=== PATIENT | male | born 1940 | race African-American/Black ===

== ENCOUNTER 2016-11-27 13:01 | Observation (INO) | payer MEDICARE ==
--- NOTE | ~2016-11-27 | EKG ---
PATIENT: MORALES ARNOLD UNIT #: [id number] Ventricular Rate: 72 BPM Atrial Rate: 72 BPM P-R Interval: 198 ms QRS Duration: 150 ms Q-T Interval: 390 ms QTC Calculation(Bezet): 427 ms P Commodore: 57 degrees Calculated R Commodore: -71 degrees Calculated T Commodore: 28 degrees Diagnosis Line: Normal sinus rhythm Diagnosis Line: Left axis deviation Diagnosis Line: Right bundle branch block with repolarization Diagnosis Line: abnormality Diagnosis Line: Septal infarct , age undetermined Diagnosis Line: Abnormal ECG Diagnosis Line: When compared with ECG of 24-JAN-2015 16:42, Diagnosis Line: Vent. rate has decreased BY 37 BPM Diagnosis Line: Right bundle branch block is now Present Diagnosis Line: Septal infarct is now Present Diagnosis Line: Confirmed by SHAYLA EVERETT MD ([id number]) on 11/27/2016 Diagnosis Line: 5:46:45 PM INTERPRETING MD: KARLOS BRIDGES
--- NOTE | ~2016-11-27 | DS ---
Unit #: [id number] #: [id number] Patient: MORALES RAMÍREZ [id number] [address] [address] [id number] I MR#: [id number] NAME: MORALES RAMÍREZ ROOM: 57 Age: 76 Sex: M Admission Date: 11/27/2016 : 1940 Discharge Date: 11/28/2016 Attending Physician: Lam Son M.D. Primary Care Physician: Colten Ferreira M.D. DISCHARGE SUMMARY ADMITTING DIAGNOSES 1. Automatic implantable cardioverter-defibrillator beeping. 2. Chest pain. 3. History of anterior ST elevation myocardial infarction in 03/2015. 4. Coronary artery disease with percutaneous coronary intervention to the left anterior descending on 03/24/2015 with bare-metal stent. 5. Ischemic cardiomyopathy with an ejection fraction of 25%. 6. Hypertension. 7. Dyslipidemia. 8. Diabetes mellitus. DISCHARGE DIAGNOSES 1. Automatic implantable cardioverter-defibrillator beeping. 2. Chest pain, resolved. 3. History of anterior ST elevation myocardial infarction in 03/2015. 4. Coronary artery disease with percutaneous coronary intervention to the left anterior descending on 03/24/2015 with bare-metal stent. 5. Ischemic cardiomyopathy with an ejection fraction of 25%. 6. Hypertension. 7. Dyslipidemia. 8. Diabetes mellitus. 9. Left breast tenderness. PROCEDURES PERFORMED 1. On 11/27/2016, the patient had an automatic implantable cardioverter-defibrillator interrogation, which showed normal function. 2. On 11/28/2016, the patient had a immoture.beiscan Cardiolite. The dictated report is pending, however, verbal report from Dr. Son is that the ejection fraction was 40% likely old infarct and no ischemia. Echocardiogram report is pending at this time. HOSPITAL COURSE The patient is a 76-year-old male with history of ST-elevation LA, CAD, and ischemic cardiomyopathy, who presented to the emergency department with complaints of his AICD beeping. He had also reported some recent chest pain, which was alleviated with one nitroglycerin. The patient denies other associated symptoms such as shortness of air, nausea, vomiting, or diaphoresis. Serial troponins were negative. AICD interrogation showed normal function. The patient had no ischemia on his Cardiolite test. The patient did report that he has some tenderness in the left lower breast area. He notes that he had trauma from what he had a cardiac arrest 2 years ago, I wonder if it could be secondary to this. Dr. Son has recommended an outpatient mammogram. Unit #: [id number] #: [id number] Patient: MORALES RAMÍREZ DISCHARGE MEDICATIONS ProAir RespiClick 90 mcg inhalation q.i.d., Symbicort 160/4.5 one puff b.i.d., Flomax 0.4 mg daily, Spiriva 1 inhalation daily, Coreg 3.125 mg b.i.d., Norvasc 5 mg daily, Pravachol 80 mg daily, aspirin 81 mg daily, Percocet 5/325 q.6 hours p.r.n. pain, Effient 10 mg daily, omeprazole 20 mg daily, Daliresp 500 mcg daily, sublingual nitroglycerin 0.4 mg p.r.n. Mr. Ramírez's case was discussed with Dr. Lam Son. He will be discharged home. He was informed the AICD beeping could indicate he was close to a magnet or may actually be another item in his home such as a smoke detector. He will call report to the office should this recur. He will follow up with Dr. Bill in 3 to 4 weeks and he will have the left-sided mammogram as an outpatient for left breast tenderness. FOLLOWUP The patient was advised to follow up with his primary care physician within the next 1 to 2 weeks. Dictated by... Liv Torres P.A.C. for Lam Son M.D. CMG/ninfa TD: 11/29/2016 01:22 JOB #: [id number] DISCHARGE SUMMARY X X DISCHARGE SUMMARY
--- NOTE | ~2016-11-27 | US77 ---
[facility] A Service of [facility] & [facility] RADIOLOGY TEXT RESULTS PATIENT: MORALES ARNOLD LOCATION: [facility] 57-01 : 41 UNIT #: [id number] AGE: [address]: Lam Son MD SEX: M ORDER DR: [id number] [facility] [address] [place], [place] [address] [id number] I MR#: [id number] Acc #: [id number] NAME: MORALES ARNOLD : 1940 SEX: M STUDY DATE/TIME: 11/28/2016 12:08 UNIT: [facility] ROOM: [facility] STUDY DESCRIPTION: US Kidney Bilateral Complete Attending Physician: Lam Son M.D. Ordering Physician: Richar Olivas M.D. Primary Care Physician: Colten Ferreira M.D. MEDICAL IMAGING REPORT This report is preliminary unless electronic signature is present EXAM Renal ultrasound 11/28/2016 INDICATIONS Acute kidney injury. BUN 13, creatinine 1.5, GFR 58.7. COMPARISON STUDIES CT from 06/29/2016 FINDINGS Right kidney measures 10.3 cm. Cortical thickness is 10 mm. Unremarkable bladder. Left kidney measures 11.2 cm. Cortical thickness 10 mm. No hydronephrosis. IMPRESSION Negative renal ultrasound. Dictated by... Jorge Alberto Block M.D. THIS IS AN ELECTRONICALLY VERIFIED REPORT Jorge Alberto Block M.D. at 12/02/2016 7:02 AM Toby TD: 11/28/2016 16:03 JOB #: [id number] MEDICAL IMAGING REPORT COPY
--- NOTE | ~2016-11-27 | CR72 ---
[facility] A Service of [facility] & [facility] RADIOLOGY TEXT RESULTS PATIENT: MORALES ARNOLD LOCATION: [facility] : 41 UNIT #: [id number] AGE: [address]: Carlo Johnson DO SEX: M ORDER DR: [id number] [facility] [address] [place], [place] [address] [id number] E MR#: [id number] Acc #: [id number] NAME: MORALES ARNOLD : 1940 SEX: M STUDY DATE/TIME: 11/27/2016 12:49 UNIT: [facility] ROOM: STUDY DESCRIPTION: CR Chest Single View Portable Attending Physician: Carlo Johnson D.O. Ordering Physician: Kristine Naylor M.D. Primary Care Physician: Colten Ferreira M.D. MEDICAL IMAGING REPORT This report is preliminary unless electronic signature is present EXAM Portable chest radiograph 11/27/2016 HISTORY Chest pain and shortness breath since last night. Patient's pacemaker fired. COMPARISON STUDIES Comparison is made to prior study from August 11, 2016. FINDINGS Cardiomegaly is identified. I do not see any definite vascular congestion. Left-sided pacemaker is present. There is some scarring versus atelectasis noted at the left lung base with some additional atelectasis suspected at the right lung base. No pneumothorax or pleural effusion is seen. Dictated by... Alla Trevino M.D. THIS IS AN ELECTRONICALLY VERIFIED REPORT Alla Trevino M.D. at 11/27/2016 4:18 PM AFF/gay TD: 11/27/2016 15:12 JOB #: [id number] MEDICAL IMAGING REPORT COPY
--- NOTE | ~2016-11-27 | HP ---
Unit #: [id number] #: [id number] Patient: MORALES RAMÍREZ [id number] [address] [place], [place] [address] [id number] I MR#: [id number] NAME: MORALES RAMÍREZ ROOM: 572 Age: 76 Sex: M Admission Date: 11/27/2016 : 1940 Attending Physician: Lam Son M.D. Primary Care Physician: Colten Ferreira M.D. HISTORY AND PHYSICAL CHIEF COMPLAINT Chest pain and AICD beeping. HISTORY OF PRESENT ILLNESS The patient is a 76-year-old -[place] male with history of anterior STEMI in March 2015, PCI to the LAD March 24, 2015 with a bare-metal stent, ischemic cardiomyopathy with ICD placement November 25, [address] Marquez, hypertension, dyslipidemia, diabetes mellitus. The patient is followed by Dr. Bill. He states that he had chest pain two days ago which was alleviated with one nitroglycerin. He states that he does have chest pain on occasion which is relieved with a nitroglycerin. He is unsure how long the pain lasted but he thinks around less than 10 minutes. He denied associated symptoms such as shortness of air, nausea, vomiting, or diaphoresis. He states he does have night sweats. The patient does report that he occasionally has episodes where his blood pressure drops and has needed to be treated with fluids in the past. He denies palpitations or tachycardia but does report he notes his heart beats hard at time. He denies dizziness and syncope. The patient reports the main reason why he came into the emergency department was he noticed his AICD beeping and came in for evaluation. PAST MEDICAL HISTORY 1. Anterior ST elevation AL, March 2015. 2. Coronary artery disease with left heart catheterization, March 24, 2015, showing a 70% hazy lesion of the proximal obtuse marginal, RCA with a 30% to 40% stenosis, LAD with a 100% proximal stenosis which was treated with bare-metal stent. 3. Ischemic cardiomyopathy with an ejection fraction of 25% on echo, March 25, 2015. 4. AICD placement, November 26, 2015, by Dr. Marquez. 5. Hypertension. 6. Diabetes mellitus. 7. Dyslipidemia. 8. Aortic root dilatation of 4.3 cm on echo, October 17, 2015. 9. History of prostate cancer with radiation. 10. History of possible GI bleed with hospitalization at [facility], June 2016. 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 Effient was discontinued at that time. 11. COPD. 12. Stage 4 renal disease. 13. GERD. PAST SURGICAL HISTORY 1. AICD. Unit #: [id number] #: [id number] Patient: MORALES RAMÍREZ 2. Colonoscopy. HOME MEDICATIONS 1. Percocet 5/325 one tab q.6 hours p.r.n. 2. ProAir one inhalation four times daily. 3. Norvasc 5 mg daily. 4. Aspirin 81 mg daily. 5. Symbicort 160/4.5 one puff twice daily. 6. Coreg 3.125 twice daily. 7. Nitroglycerin 0.4 mg sublingual p.r.n. 8. Omeprazole 20 mg daily. 9. Effient 10 mg daily. 10. Pravastatin 80 mg daily. 11. Daliresp 500 mcg daily. 12. Flomax 0.4 mg daily. 13. Spiriva one inhalation daily. ALLERGIES Penicillin, sulfa, lisinopril, codeine, losartan. SOCIAL HISTORY He denies tobacco use. States he quit smoking over 40 years ago. Denies alcohol use or illicit drug use. He lives at home with his daughter. FAMILY HISTORY Negative for premature coronary artery disease. REVIEW OF SYSTEMS GENERAL: Denies recent fevers, chills, or flu-like symptoms. HEENT: Denies headaches, vision loss, hearing loss, epistaxis, or dysphagia. PULMONARY: He has occasional cough with some production. Denies wheezing or increased shortness of breath. CARDIAC: Chest pain as discussed above. Also, occasional hard heartbeats. Denies tachycardia, orthopnea, or PND. GASTROINTESTINAL: Denies nausea, vomiting, diarrhea, or recent melena. GENITOURINARY: Denies hematuria. EXTREMITIES: Denies swelling or claudications. MUSCULOSKELETAL: Denies recent joint pain. NEUROLOGIC: Occasional dizziness. Denies syncope. DIAGNOSTIC STUDIES LABORATORY: TSH 1.11. Troponin less than 0.03 at 5:05 this morning and troponin less than 0.05 at 1310 yesterday. BNP 15. Cholesterol 110, triglycerides 89, LDL 60, HDL 32. PT 10.1, INR 1. Sodium 138, potassium 3.7, chloride 109, CO2 of 24, glucose 141, BUN 13, creatinine 1.5. AST 21, ALT 17, magnesium 1.9. White blood cells 7.3, hemoglobin 13.7, hematocrit 42.1, platelets 217,000. IMAGING: Chest x-ray shows cardiomegaly. There is no definite vascular congestion. There is some scarring versus atelectasis at the left lung base with an additional atelectasis suspected in the right lung base. CARDIOVASCULAR: A 2D echo from March 25, 2015, showed the LV was moderately dilated and ejection fraction was 25%. Impaired LV relaxation was suggested. There was moderate asymmetric left ventricular hypertrophy. The apex was akinetic. There was mild MR and mild TR. The aortic root was dilated at 4.5 cm. The ascending aorta was 4.1 cm. Unit #: [id number] #: [id number] Patient: MORALES RAMÍREZ EKG shows normal sinus rhythm with incomplete right bundle branch block and nonspecific ST abnormality. PHYSICAL EXAMINATION VITAL SIGNS: Blood pressure is 140/78, heart rate 82 and regular, respirations 16 and regular, temperature is 98.4, O2 saturation is 94% on room air. Weight is 212 pounds. GENERAL: The patient is a well-developed, well-nourished -[place] male in no acute distress. Awake, oriented x3. SKIN: No rashes or hives. HEENT: Head is normocephalic and atraumatic. There are no xanthelasmas. Oral mucosa is pink and moist. NECK: No JVD or carotid bruits. SPINE: No scoliosis. CARDIAC: Regular rate and rhythm without murmur, gallop, rub, or lift. PULMONARY: Clear to auscultation bilaterally without wheezes, rhonchi, or accessory muscle use. ABDOMEN: Soft, nontender, nondistended. Positive bowel sounds x4. The aorta pulsation is not enlarged. EXTREMITIES: No clubbing, cyanosis, or edema. ASSESSMENT AND PLAN 1. Chest pain. 2. Automated implantable cardioverter defibrillator with patient reported beeping. 3. Diabetes mellitus. 4. Hypertension. 5. Dyslipidemia. 6. Anterior ST elevation myocardial infarction, March 2015. 7. Coronary artery disease with percutaneous coronary intervention to the left anterior descending coronary artery, March 2015, with bare-metal stent. 8. Ischemic cardiomyopathy with an ejection fraction of 25% and automated implantable cardioverter defibrillator placement, November 2015. 9. Aortic root dilatation, 4.3 cm on echo March 2015. 10. History of prostate cancer. Mr. Ramírez's case was discussed with Dr. Lam Son. He has had a Lexiscan Cardiolite performed today and his AICD has been interrogated. The Lexiscan Cardiolite is still in progress and was completed. The images will be read. ACID interrogation shows normal function. Further recommendations will follow after the Lexiscan is completed. Dictated by Liv Torres P.A.C. for Lam Son M.D. RADHA/awa TD: 11/28/2016 10:40 JOB #: [id number] Unit #: [id number] #: [id number] Patient: MORALES RAMÍREZ HISTORY AND PHYSICAL X X HISTORY AND PHYSICAL
[~2016-11-27 13:01] MED LIST: ALBUTEROL MININEB NEB; ASPIRIN81 MG PO; COREG3.125 MG PO; COZAAR25 MG PO; DALIRESP500 MCG PO; EFFIENT10 MG PO; FLOMAX0.4 M1 PO; FLUTICASONE PRO16 GM NS; LISINOPRIL2.5 MG PO; NITROGLYGERIN0.4 MG SL; NORVASC PO; OMEPRAZOLE20 M2 PO; OMEPRAZOLE40 M1 PO; PERCOCET 5-3251 TAB PO; PRAVACHOL20 MG PO; PRAVASTATIN SOD40 MG PO; PRAVASTATIN SOD80 MG PO; PROAIR RESPICL90 MCG INH; SPIRIVA18 MCG INH; SYMBICORT INH
[2016-11-27 13:11] LABS: POC - CKMB 1.9 ng/mL (0.0-7.9); POC - TROPONIN <0.05 ng/mL (<=0.05)
[2016-11-27 13:13] LABS: BASOPHIL% 0.5 % (0-2.5); EOSINOPHIL# 0.1 X10e3 (0-0.7); HEMATOCRIT 42.1 % (38.0-50.0); HEMOGLOBIN 13.7 gm/dL (13.0-16.0); LYMPHOCYTE# 1.3 X10e3 (1.0-3.5); LYMPHOCYTE% 17.6 % (17.0-45.0); MEAN CORPUSCULAR HEMOGLOBIN 28.6 PG (28-34); MEAN CORPUSCULAR HGB CONC 32.5 g/dL (30-36); MONOCYTE# 0.5 X10e3 (0-1.0); MONOCYTE% 7.2 % (3.0-12.0); NEUTROPHIL# 5.3 X10e3 (1.5-7.1); NEUTROPHIL% 73.7 % (40-75); PLATELET COUNT 217 X10e3 (140-420); RED BLOOD COUNT 4.78 X10e (3.90-5.60); RED CELL DISTRIBUTION WIDTH 15.1 % (11.0-15.5); WHITE BLOOD COUNT 7.3 X10e3 (4.0-10.5)
[2016-11-27 13:14] LABS: DIFF IND NO
[2016-11-27 13:31] LABS: PARTIAL THROMBOPLASTIN TIME 29.6 SECONDS (23.5-31.3); PROTHROMBIN TIME (PATIENT) 10.1 SECONDS (9.6-11.5)
[2016-11-27 13:34] LABS: BILIRUBIN, DIRECT 0.1 mg/dL (0.0-0.2); BILIRUBIN,INDIRECT 0.2 mg/dL (0.0-0.9); BILIRUBIN,TOTAL 0.3 mg/dL (0.2-2.0); BUN/CREATININE RATIO 8.66; CALCIUM SERUM 9.1 mg/dL (8.4-10.2); CREATININE SERUM 1.5 mg/dL (0.6-1.4); GLOM FILT RATE Estimated 58.7 mL/min (>60); MAGNESIUM 1.9 mg/dL (1.6-3.0); POTASSIUM 3.7 mmol/L (3.5-5.1); PROTEIN TOTAL SERUM 7.9 g/dL (6.0-8.3)
[2016-11-27 14:26] LABS: POC - CKMB 1.9 ng/mL (0.0-7.9); POC - TROPONIN <0.05 ng/mL (<=0.05)
[2016-11-28 06:25] LABS: CHOLESTEROL 110 mg/dL (0-200); HDL CHOLESTEROL 32 mg/dL (29-75); LDL CHOLESTEROL 60 mg/dL (-130); LDL/HDL RATIO 2 RATIO (0-4); TRIGLYCERIDES 89 mg/dL (10-160)
== END 2016-11-28 16:14 | disposition home or self-care (01) ==
LOC: CED 13:01 → CEDOF 16:47 → C5C 18:41
PROVIDERS: Student in an Organized Health Care Education/Training Program
DX: R07.89 Other chest pain (principal); Z95.810 Presence of automatic (implantable) cardiac defibrillator; I25.2 Old myocardial infarction; I25.10 Atherosclerotic heart disease of native coronary artery without angina pectoris; Z95.5 Presence of coronary angioplasty implant and graft; I25.5 Ischemic cardiomyopathy; I10 Essential (primary) hypertension; E78.5 Hyperlipidemia, unspecified; E11.9 Type 2 diabetes mellitus without complications; I77.810 Thoracic aortic ectasia; J44.9 Chronic obstructive pulmonary disease, unspecified; N64.4 Mastodynia; Z85.46 Personal history of malignant neoplasm of prostate; Z79.82 Long term (current) use of aspirin; Z92.3 Personal history of irradiation
CPT/HCPCS: 36415; 71010; 76770; 78452; 80048; 80061; 80076; 82553; 83036; 83735; 83880; 84443; 84484; 85025; 85610; 85730; 93005; 93017; 93306; 94664; 94760; 99285; A9500; G0378; J2785

== ENCOUNTER → 2017-04-17 | Outpatient (CLI) | payer MEDICARE ==
--- NOTE | ~2017-04-17 | CT57 ---
[facility] A Service of [facility] & [facility] RADIOLOGY TEXT RESULTS PATIENT: MAGDA ARNOLD [facility] UN[facility] #: [id number] AGE: [address]: Alayna Segovia MD SEX: M ORDER DR: [id number] [facility] [address] [place], [place] [address] [id number] O MR#: [id number] Acc #: [id number] NAME: MAGDA ARNOLD : 1940 SEX: M STUDY DATE/TIME: 04/17/2017 13:40 UNIT: [facility] ROOM: STUDY DESCRIPTION: CT Chest Wo Cont Attending Physician: Alayna Segovia M.D. Referring Physician: Alayna Segovia M.D. Ordering Physician: Alayna Segovia M.D. Primary Care Physician: Colten Ferreira M.D. MEDICAL IMAGING REPORT This report is preliminary unless electronic signature is present EXAM CT of the chest without contrast. INDICATIONS Shortness of breath for 1 month, as well as a cough for [address] images were obtained from the thoracic inlet to the dome of the diaphragm. No intravenous contrast material was administered. This CT exam was performed with one or more of the following radiation dose reduction techniques: automatic exposure control, adjustment of mA and/or kV according to patient size, and iterative reconstruction. FINDINGS The patient does have some background emphysematous changes. There is some biapical fibrosis, right particularly greater than left. This appears stable when compared to September of 2015. The thyroid gland, trachea and esophagus appear unremarkable. There is no pleural or pericardial effusion. There are coronary artery calcifications. Aneurysmal dilatation of the ascending thoracic aorta which measures up to 4.1 cm. This is unchanged when compared to the exam from September of 2015. Proximal descending thoracic aorta tapers to 2.9 cm. Aortic root is also dilated at 4.4 cm, which is not significantly changed when compared to the prior examination. Mediastinal and hilar lymph nodes do not appear pathologically enlarged. Images through the upper abdomen do not demonstrate any acute abnormalities. Review of bony windows does not demonstrate any aggressive osseous abnormalities. IMPRESSION 1. No acute intrathoracic process is seen. No suspicious infiltrates or STS. [facility] A Service of [facility] & [facility] RADIOLOGY TEXT RESULTS PATIENT: MAGDA ARNOLD LOCATION: [facility] : 41 UNIT #: [id number] AGE: [address]: Alayna Segovia MD SEX: M ORDER DR: pulmonary nodules are identified. Patient has some stable biapical fibrosis when compared to September of 2015. 2. Aneurysmal dilatation of the aortic root and ascending thoracic aorta not significantly changed when compared to the prior exam. Dictated by... Alla Trevino M.D. THIS IS AN ELECTRONICALLY VERIFIED REPORT Alla Trevino M.D. at 04/20/2017 5:05 PM SHAWNA/darya TD: 04/17/2017 22:22 JOB #: [id number] MEDICAL IMAGING REPORT Page 1 of 1 COPY
== END | disposition home or self-care (01) ==
LOC: CCAT 12:45
DX: J44.9 Chronic obstructive pulmonary disease, unspecified (principal); J84.10 Pulmonary fibrosis, unspecified; I71.2 Thoracic aortic aneurysm, without rupture
CPT/HCPCS: 71250

== ENCOUNTER → 2017-04-23 | Outpatient (CLI) | payer MEDICARE ==
--- NOTE | ~2017-04-23 | CR63 ---
[facility] A Service of [facility] RADIOLOGY TEXT RESULTS PATIENT: MAGDA ARNOLD LOCATION: [facility] : 41 UNIT #: [id number] AGE: [address]: Alayna Segovia MD SEX: M ORDER DR: [id number] [facility] [address] [place], [place] [address] [id number] O MR#: [id number] Acc #: [id number] NAME: MAGDA ARNOLD : 1940 SEX: M STUDY DATE/TIME: 04/23/2017 10:35 UNIT: [facility] ROOM: STUDY DESCRIPTION: CR Chest 2 View Attending Physician: Alayna Segovia M.D. Referring Physician: Alayna Segovia M.D. Ordering Physician: Alayna Segovia M.D. Primary Care Physician: Colten Ferreira M.D. MEDICAL IMAGING REPORT This report is preliminary unless electronic signature is present EXAM Chest 04/23/2017 HISTORY 76-year-old male with short of air and cough symptoms indicated today. Patient for a correlation VQ scan. COMPARISON Chest CT 04/17/2017. FINDINGS Two-view chest demonstrates normal stable heart size. Thoracic aorta is mildly dilated. Hilar structures are preserved. Lungs are somewhat hyperinflated with flattened diaphragms. I see no infiltrates or congestion and no effusions. Permanent pacemaker is positioned on the left with dual pacing leads well located. IMPRESSION 1. No acute chest finding. 2. Generalized pulmonary hyperinflation consistent with COPD. A 3. Stable aortic ectasia. 4. Dual pacing leads well positioned. Dictated by... Goyo Wade M.D. THIS IS AN ELECTRONICALLY VERIFIED REPORT Goyo Wade M.D. at 04/23/2017 2:08 PM JAN/jaymie TD: 04/23/2017 13:37 JOB #: [id number] [facility] A Service of [facility] RADIOLOGY TEXT RESULTS PATIENT: MAG[facility] AR[facility]OLD [id number] 42 UNIT #: [id number] AGE: [address]: Alayna Segovia MD SEX: M ORDER DR: MEDICAL IMAGING REPORT Page 1 of 1 COPY
--- NOTE | ~2017-04-23 | NM69 ---
[facility] A Service of [facility] RADIOLOGY TEXT RESULTS PATIENT: MAGDA ARNOLD LOCATION: [facility] : 41 UNIT #: [id number] AGE: [address]: Alayna Segovia MD SEX: M ORDER DR: [id number] [facility] [address] [place], [place] [address] [id number] O MR#: [id number] Acc #: [id number] NAME: MAGDA ARNOLD : 1940 SEX: M STUDY DATE/TIME: 04/23/2017 11:38 UNIT: [facility] ROOM: STUDY DESCRIPTION: NM Pulm Vent and Perf Attending Physician: Alayna Segovia M.D. Referring Physician: Alayna Segovia M.D. Ordering Physician: Alayna Segovia M.D. Primary Care Physician: Colten Ferreira M.D. MEDICAL IMAGING REPORT This report is preliminary unless electronic signature is present EXAM Ventilation-perfusion study of the lungs INDICATIONS COPD with cough. Chest pain. Shortness of air since 2010 which is getting worse. TECHNIQUE The ventilation study was done with 20.7 mCi of technetium-99m DTPA in aerosol form and a perfusion study is done with 5.1 mCi of technetium-99m MAA. COMPARISON There is a chest x-ray from today for comparison. FINDINGS The ventilation and perfusion images are normal. A pacemaker is visible. IMPRESSION Normal study. No evidence of pulmonary embolus. Dictated by... Douglas Delgado M.D. THIS IS AN ELECTRONICALLY VERIFIED REPORT Douglas Delgado M.D. at 04/24/2017 8:16 AM YULISSA/karyna TD: 04/23/2017 14:10 JOB #: [id number] [facility] A Service of [facility] RADIOLOGY TEXT RESULTS PATIENT: MAGDA ARNOLD LOCATION: [facility] : 41 UNIT #: [id number] AGE: [address]: Alayna Segovia MD SEX: M ORDER DR: MEDICAL IMAGING REPORT Page 1 of 1 COPY
== END | disposition home or self-care (01) ==
LOC: CRC 09:00
DX: J44.9 Chronic obstructive pulmonary disease, unspecified (principal); R91.8 Other nonspecific abnormal finding of lung field; I77.819 Aortic ectasia, unspecified site; Z87.891 Personal history of nicotine dependence; Z95.0 Presence of cardiac pacemaker
CPT/HCPCS: 71020; 78598; 94060; 94726; 94729; A9540; A9567